=== PATIENT | female | born 1940 | race Caucasian/White ===

== ENCOUNTER → 2017-01-08 | Day surgery (SDC) | payer BC, OTHER ==
[~2017-01-08] VITALS: Ht 166.4 cm; Wt 52.5 kg
[~2017-01-08] MED LIST: ALEN70TA2 PO; CALC-574 PO; CLOP1TAB15 PO; DONE10TA12 PO; FENTANYL CITRATE INJ 50 MCG/1 ML 2 ML VIAL ONE; FEXO1TAB49 PO; KEFZOL SPECIAL PROCEDURE STOCK 1 GM ADDVIAL IV ONE; LIDOCAINE HCL 1% 20 ML VIAL ONE; LUTE15CA PO; MIDAZOLAM HCL 5 MG/ML 1 ML VIAL ONE; NMN10 PO; POTA99TA PO; SIMV40TA2 PO
[2017-01-08 07:07] VITALS: BP 137/57; PULSE 75; TEMP 36.4; O2SAT 96; Ht 166.4 cm; Wt 52.5 kg
--- NOTE | 2017-01-08 08:33 | History & Physical Bridge Note ---
H&P Re-Evaluation Bridge Note: I have examined the patient, reviewed the History & Physical and in the interval since the performance of the History & Physical I have noted the following changes of clinical significance: No changes noted
--- NOTE | 2017-01-08 08:39 | Procedure Note ---
Pre-Mod Sedation Assessment General Date of Moderate Sedation: Jan 08, 2017. Vital Signs: Vital Signs Past 12 Hours Date Time Temp Pulse Resp B/P Pulse Ox O2 Delivery O2 Flow Rate FiO2 01/08/17 07:07 36.4 75 16 137/57 96 Room Air Review Cardiovascular: regular rate, rhythm Abdomen: soft Lungs: lungs clear Airway Class: II Pre-Sedation Airway Assessment Oral Cavity: Dentures Short Thick Neck: No Hx of Sleep Apnea: No Smoking Status: Former Smoker Mallampati Classification: Class II ASA Classification: Class II Procedure Planning Contraindications-for Mod Sed: None Yes Notes The planned sedation has been discussed with the patient and consent obtained. I have identified the patient, determined the appropriateness of sedation and have assessed the patient immediately prior to the procedure. All medicine(s) and interventions are by my order.
--- NOTE | 2017-01-08 10:43 | Procedure Note ---
Post-Mod Sedation Assessment General Date of Moderate Sedation Jan 08, 2017. Vital Signs: Vital Signs Past 12 Hours Date Time Temp Pulse Resp B/P Pulse Ox O2 Delivery O2 Flow Rate FiO2 01/08/17 07:07 36.4 75 16 137/57 96 Room Air Review - Discharge Criteria Vital Signs Stable: Yes Alert/Oriented/Conversant: Yes Returned to Baseline Mental St: Yes Nausea Absent/Minimal: Yes Pain/Discomfort/Absent/Minimal: Yes Normal/Baseline Respirations: Yes Active Bleeding?: No Pt Received D/C Instructions: Yes Prescriptions Given: None Specific Proced. D/C Criteria Distal Pulses Present (Cardiac: Yes Groin site assessed-Card Cath: Yes Voided Prior To Discharge: Yes Discharged Patients Adult Escort/Transportation: Yes
--- NOTE | 2017-01-08 10:45 | [facility] Post Operative Brief Note ---
Immediate Operative Summary Operative Date Jan 08, 2017. Pre-Operative Diagnosis Recurrent syncope and NSVT Post-Operative Diagnosis same; no inducible sustained VT Procedure(s) Performed EPS, LINQ insertion Surgeon margie sheets Relay Tester Surgeon(s) none Estimated Blood Loss <5cc Findings none Fluids (cc crystalloids) 200cc Specimens none Drains none Anesthesia 3mg versed and 75mcg fentanyl Complication(s) None Disposition labeling machine operator holding
--- NOTE | 2017-01-08 10:52 | Discharge Instructions ---
Discharge Instructions Visit Reason for Visit: Aby To Do, With 3D Mapping,Syncope Discharge Discharge Diagnosis / Problem: syncope and nsvt Discharge Goals Goal(s): Improve function Medications Stopped Medications Name(s): none Activity Recommendations Activity Limitations: as noted below Lifting Limitations: no more than 10 pounds Exercise/Sports Limitations: gradually increase as tolerated Shower/Bathe: tomorrow Anesthesia . Post Anesthesia Instructions: If you have had General Anesthesia or IV Sedation: * Do not drive today. * Resume driving when surgeon permits. * Do not make important decisions or sign legal documents today. * Call surgeon for: 1. Temperature elevations greater than 101 degrees F. 2. Uncontrollable pain. 3. Excessive bleeding. 4. Persistent nausea and vomiting. 5. Medication intolerance (nausea, vomiting or rash). * For nausea and vomiting use only clear liquids such as: tea, soda, bouillon until nausea subsides, then gradually increase diet as tolerated. * If you have any concerns or questions, call your surgeon's office. If physician is unavailable and it is an emergency, call 911 or go to the nearest emergency room. . Diet Recommendations Recommended Home Diet: resume previous diet Procedures Procedures Performed: EPS, LINQ insertion Pending Studies Studies pending at discharge: no Medical Emergencies . Who to Call and When: Medical Emergencies: If at any time you feel your situation is an emergency, please call 911 immediately. . Non-Emergent Contact Non-Emergency issues call your: Cultural Anthropology Professor . . "Provider Documentation" section prepared by Clarita Badillo.
[2017-01-08 11:30] VITALS: BP 129/60; PULSE 70; O2SAT 96
--- NOTE | 2017-01-08 11:52 | OPERATIVE REPORT ---
DATE OF OPERATION: 01/08/2017 PREOPERATIVE DIAGNOSES: Recurrent syncope, nonsustained ventricular tachycardia. POSTOPERATIVE DIAGNOSES: Same, negative EP study, no inducible ventricular tachycardia. SURGEON: Dr. Clarita Badillo. ASSISTANTS: None. PROCEDURE: Electrophysiology study, LINQ insertion. ANESTHESIA: Monitored conscious sedation, a total of 3 mg of Versed and 75 mcg of fentanyl. START TIME: 8:45. FINISH TIME: 10:40. BLOOD LOSS: Less than 5 mL CONDITION: Stable. COMPLICATIONS: None. URINE OUTPUT: Not applicable. SPECIMENS: None. FINDINGS: None. DRAINS: None. INDICATIONS: This is a 76-year-old female who has a past medical history of syncope, initially sounded to be vasovagal, but she continues to have episodes, she is not on any diuretics or antihypertensive medicines, and she wore a CardioNet that revealed 18 beats of a nonsustained VT at around 170 beats per minute. Also past medical history of hypertension, hyperlipidemia, TIA, PAD, dementia, and a normal structural heart. Due to the recurrent syncope and the nonsustained VT on the CardioNet, she was recommended electrophysiology study with possible ablation versus ICD versus a LINQ insertion depending on the findings of the electrophysiology study. CONSENT: Consent was obtained prior to the patient going into the electrophysiology lab. The patient was informed of risks, benefits, and alternatives to the procedure. Risks include but not limited to sudden cardiac , cardiac arrhythmias, cerebrovascular accident, myocardial infarction, injury to the blood vessels, chamber of the heart or the [place] electrical system where she would need a permanent pacemaker, bleeding and infection. The patient understood these risks and agreed to the procedure as planned. Informed consent was obtained. DESCRIPTION OF THE PROCEDURE: The patient was brought into the electrophysiology lab in a fasting state. She was connected to continuous cardiac monitoring. A timeout was performed to ensure the patient's identity and procedure correctly. The patient was prepped and draped over the bilateral groins in a normal surgical standard fashion. [place] precautions were maintained throughout the procedure. Monitored anesthetic care was given throughout the procedure for the patient's comfort level. 5 mL of 1% lidocaine were given in the right femoral groin area. Using the modified Seldinger technique, venous access was obtained 2 times with a guidewire inserted and then a 6-Ugandan sheath inserted over each guidewire. Through one 6-Ugandan sheath, the [email or web address] quad diagnostic catheter was positioned initially into the His bundle region to record a His and then it was positioned into the high rate atrium. The second 6-Ugandan sheath had a second Dangelo quad diagnostic catheter positioned initially into the right ventricular apex, then eventually repositioned into the right ventricular outflow tract to continue with electrophysiology study. An electrophysiology study was performed with the following measurements: Baseline measurements: MD interval 148 milliseconds, QRS 92 milliseconds, QT was 430 milliseconds, the corrected QT was also at 430 as the patient was 60 beats per minute. The AH interval was 84 milliseconds, HV 44 milliseconds with atrial burst pacing from the high right atrium. The AV Wenckebach was found to be 370 milliseconds. With atrial extrastimuli, the AV node ERP was found to be 600/220 and 400/220 and the atrial ERP was 400/210 and 600/210. I did see 1 echo beat when I was doing atrial extrastimuli. We did right ventricular pacing and there was VA conduction at 600 but it was intermittent at 550 milliseconds. With right ventricular extrastimuli, the right ventricular ERP was found to be 600/270 and 400/240. The right ventricular ERP when the catheter was positioned in the right ventricular outflow tract was found to be 600/230 and 400/220. I gave up to triple ventricular extrastimuli from the right ventricular apex as well as the right ventricular outflow tract without any inducible VT and we declared the EP study as negative. The catheters were removed from the body. The sheaths were pulled and manual compression was used to establish hemostasis. The patient then received 1 gram of Ancef and we prepped and draped over the left fourth intercostal space to the left of the sternal border in a normal surgical standard fashion to set up for a LINQ insertion. 5 mL of 1% lidocaine were used to give local anesthesia within the fourth intercostal space, to the left of the sternal border. Using the LINQ insertion tool kit, a LINQ was inserted without any complications. Using 4-0 Monocryl, 2 interrupted sutures were placed and then a running 4-0 Monocryl suture was placed to approximate the skin and Dermabond was applied. EQUIPMENT: The LINQ is a [employer] LINQ, LNQ11, serial number [id number]. The R-waves were sensed at 1.04 millivolts. The LINQ was programmed with a tachy of 154 beats per minute, 12 intervals, gian was 30 beats per minute, 4 intervals, and pauses greater than 3 seconds. CONCLUSION: 1. Negative electrophysiology study for any inducible sustained ventricular tachycardia. 2. Normal atrioventricular beverly conduction. 3. LINQ insertion due to recurrent syncope and nonsustained VT. PLAN: Monitor patient post-sedation. She should continue her home medications and lifestyle adjustments which include compression stockings, avoiding prolonged standing as well as abrupt changes in position, staying hydrated and some extra salt in her diet. She should follow up in my [facility] office in approximately 7-10 days for device check and wound check, and I will see her in my [facility] office in about 6 months instead of 1. She will be discharged after appropriate monitoring post-sedation later today. I attest to the content of the Intraoperative Record and any orders documented therein. Any exceptio ns are noted below.
== END | disposition home or self-care (01) ==
LOC: C.EP 06:24
PROVIDERS: ATTEND Internal Medicine
DX: R55 Syncope and collapse (principal); I47.2 Ventricular tachycardia